=== PATIENT | female | born 1960 | race Caucasian/White ===

== ENCOUNTER → 2024-11-10 | Outpatient (CLI) | payer BC, SELFPAY ==
--- NOTE | 2024-11-10 14:51 | NEURO ---
NCS and/or EMG Patient Report Ordering Doctor: Jen Jenkins DATE OF SERVICE: 11/10/24 Isabella presents with numbness and tingling in both hands. She has a history of right carpal tunnel release. Electrodiagnostic findings: Right median motor nerve demonstrates normal distal latency, amplitude and conduction velocity. Left median motor nerve demonstrates normal distal latency, amplitude and conduction velocity. Normal ulnar motor response bilaterally, including conduction across the elbow. Normal median and ulnar F?waves. Prolonged left median sensory latency at the wrist. Right median sensory latency is within normal limits. Normal ulnar radial sensory sponsors. Needle EMG testing was performed in the upper limbs. All muscles tested showed no evidence of denervation with normal motor unit action potentials. Electrodiagnostic impression: This is an abnormal study. 1. Electrodiagnostic findings suggestive of left-sided median mononeuropathy. This is consistent with a mild left carpal tunnel syndrome. There is no electrodiagnostic evidence for a right carpal tunnel syndrome. 2. There is no electrodiagnostic evidence for ulnar neuropathy, including cubital tunnel syndrome. 3. No electrodiagnostic evidence is noted for cervical radiculopathy. Multi [employer] Codes Neurology Neurology Interp Codes: 94523-15 Musc test done w/n test comp (interp) (2) and 80014-99 Nrv cndj test 13/> studies (interp)
--- NOTE | 2024-11-10 14:51 | NEURO ---
NCS and/or EMG Patient Report Ordering Doctor: Jen Jenkins DATE OF SERVICE: 11/10/24 Isabella presents with numbness and tingling in both hands. She has a history of right carpal tunnel release. Electrodiagnostic findings: Right median motor nerve demonstrates normal distal latency, amplitude and conduction velocity. Left median motor nerve demonstrates normal distal latency, amplitude and conduction velocity. Normal ulnar motor response bilaterally, including conduction across the elbow. Normal median and ulnar F?waves. Prolonged left median sensory latency at the wrist. Right median sensory latency is within normal limits. Normal ulnar radial sensory sponsors. Needle EMG testing was performed in the upper limbs. All muscles tested showed no evidence of denervation with normal motor unit action potentials. Electrodiagnostic impression: This is an abnormal study. 1. Electrodiagnostic findings suggestive of left-sided median mononeuropathy. This is consistent with a mild left carpal tunnel syndrome. There is no electrodiagnostic evidence for a right carpal tunnel syndrome. 2. There is no electrodiagnostic evidence for ulnar neuropathy, including cubital tunnel syndrome. 3. No electrodiagnostic evidence is noted for cervical radiculopathy. Multi Select Codes Neurology Neurology Interp Codes: 90498-83 Musc test done w/n test comp (interp) (2) and 83493-84 Nrv cndj test 13/> studies (interp)
== END | disposition home or self-care (01) ==
PROVIDERS: PCP Physician Assistant; Referring Provider Physician Assistant; Visit Provider Physician Assistant
DX: R20.2 Paresthesia of skin (principal); R20.0 Anesthesia of skin
CPT/HCPCS: 95886; 95913